=== PATIENT | female | born 1975 | race Caucasian/White ===

== ENCOUNTER 2016-10-10 06:33 | Emergency (ER) | payer MEDICAID ==
[~2016-10-10] VITALS: Wt 77.5 kg
[~2016-10-10 06:33] MED LIST: ACET325T33 PO; ALBU8.5H3 INH; AMO500 PO; HYDR-3498 PO; IBUP-1542 PO; MED4DP PO
[2016-10-10] MEDS ORDERED: NAPR-260 PO (07:15)
[2016-10-10] MEDS ORDERED: AMO500 PO (07:15)
--- NOTE | 2016-10-10 07:19 | ERD ---
ER Documentation Chief Complaint Date/Time DATE: 10/10/16 TIME: 07:17 Chief Complaint THROAT PAIN, COUGH, FEVER AT HOME HPI 41-year-old female complains of sore throat for 1 week. She states that it is noticeably painful when she swallows, and points to her neck saying that she feels like they are swollen. She has not had any documented fever, she reports subjective fever at home with a slight cough. No voice changes or trouble swallowing, denies shortness of breath. ROS All systems reviewed and are negative except as per history of present illness. Medications Home Meds Active Scripts Naproxen* (Naprosyn*) 500 Mg Tablet, 500 MG PO BID Y for PAIN AND/OR INFLAMMATION, #30 TAB Prov:JAZMÍN BOWMAN PA-C 10/10/16 Amoxicillin* (Amoxicillin*) 500 Mg Cap, 500 MG PO TID for 7 Days, CAP Prov:JAZMÍN BOWMAN PA-C 10/10/16 Methylprednisolone* (Medrol* DOSE PACK) 4 Mg/Dose-Pack Tab.ds.pk, 4 MG PO . DIRECTED for 7 Days, PACKET Prov:STEPHY BARRIOS NP 09/20/15 Albuterol Sulfate* (Proair HFA*) 8.5 Gm Hfa.aer.ad, 2 PUFF INH Q4, #1 INHALER Prov:STEPHY BARRIOS NP 09/20/15 Amoxicillin* (Amoxicillin*) 500 Mg Cap, 500 MG PO TID for 7 Days, CAP Prov:FABIO MCDERMOTT PA-C 07/11/15 Hydrocodone Bit-Acetaminophen* ([place]*) 5-325 Mg Tab, 1 TAB PO Q6 Y for PAIN, # 7 TAB Prov:BEVERLEY GOLD 05/17/15 Ibuprofen* (Motrin*) 600 Mg Tab, 600 MG PO Q8, #20 Prov:BEVERLEY GOLD 05/17/15 Acetaminophen* (Tylenol*) 325 Mg Tablet, 1 TAB PO Q8 Y for PAIN AND OR ELEVATED TEMP, #20 TAB Prov:GOLD JARQUIN DO 05/03/15 Ibuprofen* (Motrin*) 600 Mg Tab, 600 MG PO Q8, #20 Prov:GOLD JARQUIN DO 05/03/15 Reported Medications [None] No Conflict Check 09/01/10 Allergies Allergies: Coded Allergies: No Known Drug Allergy (Verified Allergy, Mild, 05/17/15) PMhx/Soc History of Surgery: Yes ( X1 ) Anesthesia Reaction: No Hx Neurological Disorder: No Hx Respiratory Disorders: Yes (ASTHMA) Hx Cardiac Disorders: No Hx Psychiatric Problems: No Hx Miscellaneous Medical Probl: No Hx Alcohol Use: No Hx Substance Use: No Hx Tobacco Use: No Smoking Status: Never smoker Physical Exam Vitals Vital Signs Date Time Temp Pulse Resp B/P Pulse Ox O2 Delivery O2 Flow Rate FiO2 10/10/16 06:36 98.8 72 17 134/80 98 Physical Exam General: Well-developed, well-nourished. The patient appears in no acute distress. HEENT: Head is normocephalic, atraumatic. No scleral icterus. Pupils are equal , round, and reactive. Oral mucous membranes are moist. Tonsils are erythematous, mild exudate bilaterally, uvula is midline, no masses. No trismus. Neck: Supple. Nontender. Positive tender cervical lymphadenopathy. Lungs: Clear to auscultation. Normal air movement. Heart: Regular rate and rhythm. S1 and S2 are normal. No murmurs, gallops, or rubs. Abdomen: Soft, nontender, nondistended. Bowel sounds are normoactive. Extremities: No clubbing or cyanosis. Normal pulses. Moving extremities x 4. No weakness. Neurologic: Alert and oriented 3. No focal deficits. Skin: Normal turgor. No rash or lesions. Procedures/MDM 41-year-old female presents with sore throat, there is an erythematous oropharynx with bilateral exudate with positive cervical lymphadenopathy. She states that her cough does not seem to really bother her, it is a throat mainly , given the presentation for a week, exudate with cervical lymphadenopathy patient will be treated for presumed strep pharyngitis. Physical examination does not reveal any abscess or any airway threatening process. Departure Diagnosis: Primary Impression: Sore throat Condition: Good Patient Instructions: Pharyngitis, Strep (Presumed) Additional Instructions: Llame al doctor MAANA y kristina keira CHONG PARA DENTRO DE 1-2 NEFF.Dgale a la secretaria que nosotros le instruimos hacer esta chong.Avise o llame si mathews condicin se empeora antes de la chong. Regresa aqui si peor o no mejor. JAZMÍN BOWMAN PA-C Oct 10, 2016 07:19
== END 2016-10-10 07:51 | disposition home or self-care (01) ==
LOC: FTE 06:33
DX: J02.9 Acute pharyngitis, unspecified (principal); J45.909 Unspecified asthma, uncomplicated
CPT/HCPCS: 99283

== ENCOUNTER 2017-09-10 19:33 | Emergency (ER) | END 2017-09-11 00:57 | disposition home or self-care (01) ==

== ENCOUNTER 2018-06-05 17:30 | Emergency (ER) | END 2018-06-05 21:27 | disposition home or self-care (01) ==